=== PATIENT | female | born 1955 | race African-American/Black ===

== ENCOUNTER 2017-05-15 03:00 | Inpatient (IN) | payer OTHER ==
[~2017-05-15] VITALS: Ht 157.5 cm; Wt 98.9 kg
[2017-05-15] MEDS ORDERED: ONDANSETRON HCL/PF 4 MG/2 ML VIAL ONE ×3 (03:15→05:37)
[2017-05-15] MEDS ORDERED: MORPHINE SULFATE INJ 4 MG/ML DISP.SYRIN ONE (03:15)
--- NOTE | 2017-05-15 03:20 | NUR ---
PT BIB [facility] WITH A C/O SOB AND ABD PAIN, N/V SINCE SUNDAY. PT STATED THAT SHE HAS NOT BEEN ABLE TO EAT OR DRINK WITHOUT VOMITTING SINCE SUNDAY. PT IS AA&O X4, AMBULATORY, AND RESP EVEN AND UNLABORED. PT IS ON THE MONITOR AND CONTINUOUS PULSE OX. PT STATED THAT HER ABD PAIN IS 8/10.
[2017-05-15] MEDS ORDERED: ONDANSETRON HCL/PF 4 MG/2 ML VIAL IVP ONE (03:30)
[2017-05-15] MEDS ORDERED: MORPHINE SULFATE INJ 2 MG/ML DISP.SYRIN IV ONE (03:30)
[2017-05-15] MEDS ORDERED: IV NS 0.9% 1,000 ML BAG IV ONE (03:30)
[2017-05-15 03:46] LABS: BASOPHILS % (AUTO) 0.4 % (0.0-2.0); HEMATOCRIT 41 % (33-45); HEMOGLOBIN 13.6 g/dL (11.5-14.8); LYMPHOCYTES # (AUTO) 0.5 /CMM (0.8-4.8); LYMPHOCYTES % (AUTO) 7.2 % (20.0-44.0); MEAN CORPUSCULAR HGB CONC 34 g/dl (31.0-36.0); MEAN CORPUSCULAR VOLUME 88 fL (82-100); MONOCYTES # (AUTO) 0.1 /CMM (0.1-1.30); MONOCYTES % (AUTO) 2.3 % (2.0-12.0); NEUTROPHILS # (AUTO) 5.7 /CMM (1.8-8.9); NEUTROPHILS % (AUTO) 90.1 % (43.0-81.0); PLATELET COUNT (AUTO) 276 /CMM (150-450); RDW COEFFICIENT OF VARIATION 13.8 (11.5-15.0); RED BLOOD CELL COUNT(AUTO) 4.61 MIL/uL (4.0-5.2); WHITE BLOOD COUNT (AUTO) 6.4 K/uL (4.3-11.0)
--- NOTE | 2017-05-15 03:59 | NUR ---
PT RETURNED FROM CT AND WAS VOMITTING. DR. MENDOZA NOTIFIED. NEW ORDERS GIVEN.
[2017-05-15] MEDS ORDERED: ONDANSETRON HCL/PF 4 MG/2 ML VIAL IV ONE (04:00)
[2017-05-15 04:01] LABS: INR 1.05 (0.87-1.13)
[2017-05-15 04:03] LABS: ALBUMIN 3.9 g/dL (3.4-5.0); BILIRUBIN,DIRECT 0.2 mg/dL (0.0-0.2); BILIRUBIN,TOTAL 0.9 mg/dL (0.2-1.0); TOTAL PROTEIN, SERUM 7.9 g/dL (6.4-8.2)
[2017-05-15 04:05] LABS: TROPONIN I 0.32 ng/mL (0.00-0.056)
[2017-05-15 04:09] LABS: CREATININE 0.6 mg/dL (0.6-1.3)
[2017-05-15 04:10] LABS: POTASSIUM 2.5 mmol/L (3.5-5.1)
[2017-05-15] MEDS ORDERED: POTASSIUM CL. PREMIX PERIPHER. 50 ML ONE ×2 (04:13→06:50)
--- NOTE | 2017-05-15 04:16 | NUR ---
TEXTED DR. WILLINGHAM FOR ADMISSION.
[2017-05-15] MEDS ORDERED: ASPIRIN 325 MG TABLET ONE (04:17)
[2017-05-15] MEDS ORDERED: METRONIDAZOLE 500MG/ NS 100ML 100 ML IV ONE (04:17)
[2017-05-15] MEDS ORDERED: CIPROFLOXACIN IV RTU 200 ML IV ONE (04:17)
[2017-05-15] MEDS ORDERED: ASPIRIN 325 MG TABLET PO ONE (04:30)
[2017-05-15] MEDS: POTASSIUM CHLORIDE 10 MEQ/50 ML PREMIXED IVPB FOR PERIPHERAL LINE IV ONE ×2 (04:30→05:30)
[2017-05-15] MEDS ORDERED: CIPROFLOXACIN IV RTU 400 MG in PREMIX 1 EA IV SCH (04:30)
[2017-05-15] MEDS ORDERED: FLAGYL/NS RTU 500 MG/100 ML PIGGYBACK IV ONE (04:30)
--- NOTE | 2017-05-15 04:30 | NUR ---
PAGED DR. WILLINGHAM FOR ADMISSION.
--- NOTE | 2017-05-15 04:35 | NUR ---
PT AMBULATED TO THE BATHROOM WITH A STEADY GAIT.
--- NOTE | 2017-05-15 04:40 | NUR ---
URINE SAMPLE OBTAINED.
--- NOTE | 2017-05-15 04:41 | NUR ---
PANEL CALLED TO INQUIRE IF DR. WILLINGHAM HAD CALLED BACK; INFORMED NOT YET AND HE GOT REPAGED
--- NOTE | 2017-05-15 04:45 | NUR ---
ATTEMPTED TO START A 2ND IV IN PT'S LEFT HAND X2. UNSUCCESSFUL
[2017-05-15 04:47] LABS: APPEARANCE,URINE CLEAR (CLEAR); BILIRUBIN,URINE 1+ (NEGATIVE); BLOOD, URINE TRACE Ery/uL (NEGATIVE); COLOR,URINE YELLOW (YELLOW); KETONES,URINE 3+ (NEGATIVE); LEUKOCYTE ESTERASE ,URINE NEGATIVE (NEGATIVE); NITRITE, URINE NEGATIVE (NEGATIVE); PROTEIN,URINE 1+ mg/dl (NEGATIVE); UGLUCOSE NEGATIVE (NEGATIVE); UROBILINOGEN,URINE 0.2 EU/dL (0.2)
--- NOTE | 2017-05-15 04:51 | NUR ---
REPORT GIVEN TO NAN BARRAGAN
--- NOTE | 2017-05-15 04:52 | NUR ---
NAN MOSELEY ATTEMPTED IV START X2 IN PT'S HAND WITH THE VEIN FINDER. UNSUCCESSFUL.
[2017-05-15 04:53] LABS: BACTERIA,URINE Few /HPF (None Seen); MUCUS,URINE Few /LPF (None Seen); SQUAMOUS EPITHELIAL CELL,UR Few /HPF (None Seen)
--- NOTE | 2017-05-15 04:55 | NUR ---
ENDORSING CIPRO 400MG IVPB TO NAN BARRAGAN.
--- NOTE | 2017-05-15 04:55 | NUR ---
ENDORSED FLAGYL 500MG IVPB AND 30 MEQ POTASSIUM IV TO NAN BARRAGAN. WRITTEN ORDERS IN CHART.
--- NOTE | 2017-05-15 04:57 | NUR ---
PT ONLY WANTS IV IN HANDS. NO FURTHER IV STARTED.
--- NOTE | 2017-05-15 05:00 | NUR ---
NO CALL BACK YET FROM DR. WILLINGHAM. REPAGED THROUGH [facility].
--- NOTE | 2017-05-15 05:30 | NUR ---
CALLED [facility] FOR DR. WILLINGHAM
--- NOTE | 2017-05-15 05:30 | NUR ---
NAN MOSELEY IS AT THE BEDSIDE. POTASSIUM INFUSING.
[2017-05-15] MEDS ORDERED: hydrALAZINE HCL IV 20 MG VIAL ONE (05:34)
--- NOTE | 2017-05-15 05:36 | NUR ---
PT'S BP IS ELEVATED. DR. MENDOZA NOTIFIED. NEW ORDERES GIVEN.
--- NOTE | 2017-05-15 05:38 | NUR ---
PT IS VOMITTING. DR MENDOZA NOTIFIED. NEW ORDERS GIVEN AND CARRIED OUT.
--- NOTE | 2017-05-15 05:40 | NUR ---
LATE ENTRY, PATIENT RECIEVED 10MEQ IN 50 ML OF POTASSIUM AT 50 ML HOUR. FIRST BAG ADMIN IN ER, ER MD WANTS 40 MEQ IN TOTAL
--- NOTE | 2017-05-15 05:43 | NUR ---
PAGED DR. WILLINGHAM VIA [facility]. INFORMED "I CALLED BACK UP TOO; STILL WAITING"
[2017-05-15] MEDS ORDERED: hydrALAZINE HCL IV 20 MG VIAL IV PRN (06:00)
[2017-05-15] MEDS ORDERED: ONDANSETRON HCL/PF 4 MG/2 ML VIAL IV PRN (06:00)
[2017-05-15] MEDS ORDERED: MORPHINE SULFATE INJ 2 MG/ML DISP.SYRIN IV PRN (06:30)
[2017-05-15] MEDS ORDERED: NITROGLYCERIN 0.4 MG/TAB BOTTLE SL PRN (06:30)
--- NOTE | 2017-05-15 06:48 | NUR ---
BROUGHT PT TO [facility] TELE OVERFLOW.
--- NOTE | 2017-05-15 06:50 | NUR ---
BROUGHT THE CIPRO 400 MG IVPB, FLAGYL 500 MG IVPB, POTASSIUM 10 MeQ IVPB (X3) TO [facility] AND GAVE IT TO THE CHARGE NURSE.
[2017-05-15] MEDS ORDERED: POTASSIUM CL. PREMIX PERIPHER. 100 ML ONE (06:51)
[2017-05-15 06:58] VITALS: BP 187/78
--- NOTE | 2017-05-15 06:58 | NUR ---
RECIEVED PATIENT FROM ER VIA [facility] , ALERT/ORIENTED X3, AMBULATORY WITH 1 PERSON ASSISST, WITH ONGOING POTASSIUM IV FLUIDS, NO RESPIRATORY DISTRESS NOTED, RIGHT HAND 20 GAUGE, NO INFILTRATION/INFECTION NOTED, ON TELEMONITOR SINUS RHYTHM 85, ALL SAFETY MEASURES TAKEN, CALL LIGHT WITHIN REACH, ALL BELONGINGS WITHIN REACH, SIDE RAILS UP X 2, BED IN THE LOWEST POSITION, WILL ENDORSE TO ADMITTING NURSE FOR MOUSTAPHA
--- NOTE | 2017-05-15 07:30 | NUR ---
RN NOTES RECEIVED PATIENT IN BED ALERT, AWAKE, ORIENTED X4 WITH BREATHING NORMAL, EVEN AND UNLABORED. NO SOB NOTED. NO ACUTE DISTRESS NOTED. TELE MONITOR REVEALS SR, HR=88. IV R HAND IS PATENT AND INTACT, NO INFILTRATION NOTED. PULSES PRESENT. SAFETY MEASURE OBSERVED. CALL LIGHT WITH IN REACH. WILL CONT TO MONITOR.
[2017-05-15] MEDS: POTASSIUM CL. PREMIX PERIPHER. 50 ML IV SCH ×8 (07:56→23:20)
[2017-05-15 08:00] VITALS: BP 172/86
[2017-05-15] MEDS ORDERED: POTASSIUM CHLORIDE 10 MEQ/50 ML PREMIXED IVPB FOR PERIPHERAL LINE IV ONE (08:00)
[2017-05-15] MEDS: LEVOFLOXACIN 500 MG /D5W 100ML 500 MG in PREMIX 1 EA IV SCH (08:02)
[2017-05-15] MEDS: METRONIDAZOLE 500MG/ NS 100ML 500 MG in PREMIX 1 EA IV SCH ×3 (08:02→21:19)
[2017-05-15] MEDS ORDERED: CLONIDINE HCL 0.3 MG/24H PTWK 1 EA PATCH TD SCH (08:30)
[2017-05-15 08:56] LABS: MAGNESIUM 1.5 mg/dL (1.8-2.4); PHOSPHORUS 3.2 mg/dL (2.5-4.9)
[2017-05-15 09:07] LABS: THYROID STIMULATING HORMONE 0.56 uIU/mL (0.358-3.74)
[2017-05-15] MEDS ORDERED: MORPHINE SULFATE INJ 4 MG/ML DISP.SYRIN IV PRN (09:30)
[2017-05-15] MEDS: LOSARTAN POTASSIUM 25 MG TABLET PO SCH (09:31)
[2017-05-15] MEDS: CARVEDILOL 6.25 MG TABLET PO SCH ×2 (09:31→21:20)
[2017-05-15] MEDS: ASPIRIN 81 MG TAB.CHEW PO SCH (09:32)
[2017-05-15] MEDS: NITROGLYCERIN 30 GM TUBE TP SCH ×2 (09:33→21:20)
[2017-05-15] MEDS: ONDANSETRON HCL/PF 4 MG/2 ML VIAL IVP PRN (09:40)
[2017-05-15] MEDS: MORPHINE SULFATE INJ 4 MG/ML DISP.SYRIN IV PRN ×3 (10:10→19:43)
[2017-05-15 12:00] VITALS: BP 162/84
--- NOTE | 2017-05-15 13:00 | NUR ---
RN NOTES RELAYED CRITICAL TROPONIN RESULTS =1.[address] STUBBS WITH NNO.
[2017-05-15] MEDS: PANTOPRAZOLE 40 MG VIAL IV SCH (13:30)
[2017-05-15] MEDS: Magnesium 1GM/D5W 100ML PREMIX 100 ML IV SCH ×2 (13:43→15:09)
[2017-05-15] MEDS: hydrALAZINE HCL IV 20 MG VIAL IV PRN (13:46)
[2017-05-15 16:00] VITALS: BP 136/90
[2017-05-15] MEDS ORDERED: IV NS 0.9% 1,000 ML BAG IV PRN (16:30)
[2017-05-15] MEDS: IV NS 0.9% 1,000 ML IV PRN (16:45)
[2017-05-15 18:27] LABS: CALCIUM, SERUM 8.4 mg/dL (8.5-10.1); CREATININE 0.7 mg/dL (0.6-1.3)
--- NOTE | 2017-05-15 18:30 | NUR ---
RN NOTES RELAYED POTASSIUM RESULTS =2.6 TO CIARA ANGLIN WITH ORDER TO GIVE POTASSIUM 60MEQ IV. ORDER NOTED AND CARRIED OUT. WILL CONT TO MONITOR.
[2017-05-15 18:33] LABS: POTASSIUM 2.6 mmol/L (3.5-5.1)
[2017-05-15 18:50] LABS: TROPONIN I 1.371 ng/mL (0.00-0.056)
--- NOTE | 2017-05-15 19:03 | NUR ---
RN NOTES RELAYED TROPONIN RESULTS=1.371 TO CIARA ANGLIN WITH NNO.
--- NOTE | 2017-05-15 19:30 | NUR ---
RN NOTES RECEIVED PT AWAKE ON BED CALM AND COMFORTABLE. PT IS AOX4 ABLE TO MAKE KNOWN NEEDS. DENIES ANY CHEST PAIN. NO ACUTE RESP DISTRESS. AFEBRILE. WITH IV SITE ON RIGHT HAND G 20 RUNNING WITH NS @ 75 CC/HR AND STARTED KCL IV RUNNING WELL NO INFILTRATION SHOWS. COMPLAINING OF HEADACHE AT 7/10 SCALE. INFORMED REGARDING PLAN OF CARE AND AND EDUCATE REGARDING EGD FOR TOMORROW. KEPT PT CLEAN AND DRY. CALL LIGHT KEPT WITHIN EASY REACH INSTRUCTION PROVIDED. WILL CONTINUE TO MONITOR.
--- NOTE | 2017-05-15 19:31 | NUR ---
RN NOTES PATIENT ENDORSED TO NEXT SHIFT IN STABLE CONDITION FOR CONTINUITY OF CARE. NO SIGNIFICANT CHANGES NOTED. WILL CONT TO MONITOR.
[2017-05-15 20:00] VITALS: BP 125/50
[2017-05-15] MEDS: ATORVASTATIN 40 MG TABLET PO SCH (21:20)
[2017-05-16] VITALS (8 sets, daily range): BP systolic 115–183; BP diastolic 52–95
[2017-05-16] MEDS: POTASSIUM CL. PREMIX PERIPHER. 50 ML IV SCH ×9 (00:23→15:57)
--- NOTE | 2017-05-16 00:48 | NUR ---
RN NOTES PT CONTINUE TO COMPLAIN OF PAIN ON HER IV SITE DUE TO KCL IV THAT WAS GIVEN TO HER. REQUESTED TO CHANGE THE ROUTE BY MOUTH. PER LINNETTE DONG PT NEED TO HAVE KCL VIA IV LINE CAUSE THE PT REALLY NEEDS IT DUE TO HER CARDIAC PICTURE. PER MD TO PLACED A NEW LINE INSTEAD TO KEEP THE KCL VIA IV. PT MADE AWARE.
[2017-05-16] MEDS: METRONIDAZOLE 500MG/ NS 100ML 500 MG in PREMIX 1 EA IV SCH ×3 (04:37→21:33)
[2017-05-16] MEDS: LEVOFLOXACIN 500 MG /D5W 100ML 500 MG in PREMIX 1 EA IV SCH (06:32)
[2017-05-16] MEDS: MORPHINE SULFATE INJ 4 MG/ML DISP.SYRIN IV PRN ×2 (07:00→14:10)
[2017-05-16] MEDS ORDERED: ANESTHESIA TRAY IN PYXIS 1 EA TRAY MC ONE (07:10)
--- NOTE | 2017-05-16 07:15 | NUR ---
RN NOTES PT PICKED UP BY [facility] STAFF AT THIS TIME FOR EGD PROCEDURE. ALL CONSENT SIGNED BY PATIENT. PT REFUSED BLOOD TRANSFUSION PER PT. SHE IS TAOISM. PT IS IN STABLE AT THIS TIME. PAIN MEDICINE GIVEN ORDERED . VS STABLE. REMAINED SR HR ON 60'S. IV ATB TOLERATED WELL KCL IV GIVEN ORDERED. NO EPISODE OF VOMITING OR NAUSEA THIS MORNING. MORNING CARE PROVIDED. ALL NEEDS ATTENDED. KEPT PT CLEAN AND DRY. PT ASSISTED TO THE BATHROOM AT TIMES. WILL ENDORSED CONTINUITY OF CARE TO AM NURSE.
[2017-05-16 07:17] LABS: BASOPHILS % (AUTO) 0.7 % (0.0-2.0); HEMATOCRIT 35 % (33-45); HEMOGLOBIN 12.2 g/dL (11.5-14.8); LYMPHOCYTES # (AUTO) 1.5 /CMM (0.8-4.8); MEAN CORPUSCULAR HGB CONC 35 g/dl (31.0-36.0); MEAN CORPUSCULAR VOLUME 89 fL (82-100); MONOCYTES # (AUTO) 0.6 /CMM (0.1-1.30); MONOCYTES % (AUTO) 10.2 % (2.0-12.0); NEUTROPHILS # (AUTO) 4.1 /CMM (1.8-8.9); NEUTROPHILS % (AUTO) 65.1 % (43.0-81.0); PLATELET COUNT (AUTO) 252 /CMM (150-450); RDW COEFFICIENT OF VARIATION 14.5 (11.5-15.0); RED BLOOD CELL COUNT(AUTO) 3.97 MIL/uL (4.0-5.2); WHITE BLOOD COUNT (AUTO) 6.4 K/uL (4.3-11.0)
--- NOTE | 2017-05-16 07:30 | NUR ---
RN OPEN NOTES RECEIVED REPORT FROM BUSINESS BANKING SALES ASSISTANT RN. PATIENT IS OFF THE FLOOR FOR EGD
[2017-05-16 07:36] LABS: ALBUMIN 3.3 g/dL (3.4-5.0); BILIRUBIN,TOTAL 1.3 mg/dL (0.2-1.0); CALCIUM, SERUM 8.2 mg/dL (8.5-10.1); PHOSPHORUS 2.5 mg/dL (2.5-4.9); TOTAL PROTEIN, SERUM 6.5 g/dL (6.4-8.2)
[2017-05-16] MEDS ORDERED: SUCCINYLCHOLINE CHLORIDE 20 MG/ML VIAL ONE (07:41)
[2017-05-16 07:44] LABS: TROPONIN I 0.519 ng/mL (0.00-0.056)
--- NOTE | 2017-05-16 07:44 | NUR ---
LAB CALLED TO REPORT CRITICAL TROPONIN LEVEL OF 0.519 = TROPONIN IS TRENDING DOWN
[2017-05-16] MEDS: CARVEDILOL 6.25 MG TABLET PO SCH ×2 (08:05→21:05)
[2017-05-16] MEDS: ASPIRIN 81 MG TAB.CHEW PO SCH (08:05)
[2017-05-16] MEDS: LOSARTAN POTASSIUM 25 MG TABLET PO SCH (08:05)
[2017-05-16] MEDS: NITROGLYCERIN 30 GM TUBE TP SCH ×2 (08:06→21:05)
--- NOTE | 2017-05-16 08:23 | NUR ---
PATIENT ARRIVED BACK TO UNIT FROM EGD
[2017-05-16] MEDS: ONDANSETRON HCL/PF 4 MG/2 ML VIAL IVP PRN ×2 (08:27→22:03)
[2017-05-16] MEDS: hydrALAZINE HCL IV 20 MG VIAL IV PRN ×3 (08:34→22:03)
--- NOTE | 2017-05-16 08:38 | NUR ---
PATIENT CAME BACK TO UNIT, NAUSEA AND HIGH BLOOS PRESSURE. ZOFRAN AND HYDRALAZINE ADMINISTERED. WILL CONTINNUE TO MONITOR PATIENT. PATIENT REFUSED ALL 0900 MEDS DUE TO NAUSEA
[2017-05-16] MEDS ORDERED: METOCLOPRAMIDE HCL 10 MG/2 ML VIAL IV PRN (10:30)
[2017-05-16] MEDS ORDERED: METOCLOPRAMIDE HCL 10 MG/2 ML VIAL IV ONE (11:00)
[2017-05-16] MEDS: PANTOPRAZOLE 40 MG VIAL IV SCH (13:07)
--- NOTE | 2017-05-16 16:10 | NUR ---
HIGH BLOOD PRESSURE. 171/63 HYDRALAZINE IV ADMINISTERED. PATIENT UNABLE TO TOLERATE PO D/T N/V
--- NOTE | 2017-05-16 19:14 | NUR ---
RN CLOSING NOTES PATIENT IS IN BED. AWAKE AND ALERT. AOX3. BED IN LOW POSITION, LOCKED AND TWO SIDE RAILS ARE UP FOR SAFETY. CALL LIGHT WITHIN REACH. NO SIGNS AND SYMPTOMS OF DISTRESS. ALL NEEDS ANTICIPATED AND ATTENDED FOR. PATIENT KEPT CLEAN, DRY AND SAFE. NO NEW CONCERNS DURING MY SHIFT
[2017-05-16] MEDS: METOCLOPRAMIDE HCL 10 MG/2 ML VIAL IV SCH (20:00)
[2017-05-16] MEDS ORDERED: METOCLOPRAMIDE HCL 10 MG/10 ML UDC PO SCH (20:00)
[2017-05-16] MEDS: ATORVASTATIN 40 MG TABLET PO SCH (21:05)
[2017-05-17] VITALS: BP_SYST 130; BP_SYST 158; BP_DIAS 53; BP_DIAS 63
[2017-05-17] MEDS ORDERED: CLONIDINE HCL 0.3 MG/24H PTWK 1 EA PATCH TD SCH
[2017-05-17 00:04] VITALS: BP 105/60
[2017-05-17] MEDS: MORPHINE SULFATE INJ 4 MG/ML DISP.SYRIN IV PRN ×2 (00:58→14:32)
[2017-05-17] MEDS ORDERED: ACETAMINOPHEN 650 MG/SUPP.RECT RC PRN (01:30)
[2017-05-17] MEDS: IV NS 0.9% 1,000 ML IV PRN (03:32)
[2017-05-17 04:00] VITALS: BP 105/68
[2017-05-17] MEDS: METOCLOPRAMIDE HCL 10 MG/2 ML VIAL IV SCH ×2 (04:00→12:00)
[2017-05-17] MEDS: METRONIDAZOLE 500MG/ NS 100ML 500 MG in PREMIX 1 EA IV SCH ×3 (05:47→21:34)
[2017-05-17] MEDS: LEVOFLOXACIN 500 MG /D5W 100ML 500 MG in PREMIX 1 EA IV SCH (05:48)
[2017-05-17] MEDS: ONDANSETRON HCL/PF 4 MG/2 ML VIAL IVP PRN ×3 (05:48→19:03)
[2017-05-17 07:11] LABS: BASOPHILS % (AUTO) 0.6 % (0.0-2.0); EOSINOPHILS % (AUTO) 0.5 % (0.0-6.0); HEMATOCRIT 34 % (33-45); HEMOGLOBIN 11.8 g/dL (11.5-14.8); LYMPHOCYTES # (AUTO) 1.6 /CMM (0.8-4.8); LYMPHOCYTES % (AUTO) 24.6 % (20.0-44.0); MEAN CORPUSCULAR HGB CONC 34 g/dl (31.0-36.0); MEAN CORPUSCULAR VOLUME 88 fL (82-100); MONOCYTES # (AUTO) 0.8 /CMM (0.1-1.30); MONOCYTES % (AUTO) 11.7 % (2.0-12.0); NEUTROPHILS # (AUTO) 4.1 /CMM (1.8-8.9); NEUTROPHILS % (AUTO) 62.6 % (43.0-81.0); PLATELET COUNT (AUTO) 242 /CMM (150-450); WHITE BLOOD COUNT (AUTO) 6.5 K/uL (4.3-11.0)
[2017-05-17 07:25] LABS: CALCIUM, SERUM 8.3 mg/dL (8.5-10.1); CREATININE 0.7 mg/dL (0.6-1.3); MAGNESIUM 1.8 mg/dL (1.8-2.4); PHOSPHORUS 3.3 mg/dL (2.5-4.9)
--- NOTE | 2017-05-17 07:30 | NUR ---
AUDIT ASSOCIATE AM NOTES PATIENT IS IN BED. AWAKE AND ALERT. AOX3. ON RA, NOT IN ANY DISTRESS, TELEMETRY READS SR HR 64, DENIES CHEST PAIN OR DISCOMFORT, RT HAND IV ACCESS INFILTRATED, WILL REMOVED AND START A NEW ONE, LFA G 20 WITH NS AT 75 ML/HR, INFUSING WELL, SITE CLEAR. NPO FOR CTA HEART WITH 3D IMAGE, BED IN LOW POSITION, LOCKED AND TWO SIDE RAILS ARE UP FOR SAFETY. CALL LIGHT WITHIN REACH. SKIN INTACT, BED REST FOR NOW. CALL LIGHT WITH IN REACH. WILL CONT TO MONITOR.
[2017-05-17 07:49] LABS: POTASSIUM 2.8 mmol/L (3.5-5.1)
[2017-05-17 08:00] VITALS: BP 140/51
--- NOTE | 2017-05-17 08:45 | NUR ---
RN NOTES DR MORENA MO NOTIFIED OF K+ LEVEL 2.8. ORDERED TO GIVE KCL 40 MEQ ONCE.
[2017-05-17] MEDS: NITROGLYCERIN 30 GM TUBE TP SCH ×2 (09:00→21:34)
--- NOTE | 2017-05-17 09:30 | NUR ---
WIRELESS SALES REPRESENTATIVE NOTES DUE MEDS GIVEN
[2017-05-17] MEDS: ASPIRIN 81 MG TAB.CHEW PO SCH (09:34)
[2017-05-17] MEDS: LOSARTAN POTASSIUM 25 MG TABLET PO SCH (09:35)
[2017-05-17] MEDS: CARVEDILOL 6.25 MG TABLET PO SCH ×2 (09:38→21:34)
[2017-05-17] MEDS ORDERED: POTASSIUM CHLORIDE 20 MEQ TAB.PRT.SR PO ONE (10:30)
--- NOTE | 2017-05-17 11:45 | NUR ---
RN NOTES CTA HEART WITH 3D IMAGE CANCELLED. PER RN BEVERLY, PT IS NOT FEELING WELL. WILL RESCHEDULE TOMORROW AT 1200. NPO AFTER BREAKFAST.
--- NOTE | 2017-05-17 12:00 | NUR ---
COMPUTER APPLICATIONS INSTRUCTOR PT IN BED EXPLAINED PT REGARDING THE CTA PT STATED SHE DOES NOT FEEL GOOD HER STOMACH IS BOTHERING HER AND SHE DOES NOT WANT CTA DONE TODAY, EXPLAIN PT THE RISKS AND BENEFITS PT STILL REFUSED NOTIFIED DR. RATLIFF AND NURSING SUP REGARDING PT REFUSAL AND SHE WANTS THE PROCEDURE TO BE DONE TOMORROW.
[2017-05-17] MEDS: PANTOPRAZOLE 40 MG VIAL IV SCH (13:09)
--- NOTE | 2017-05-17 13:09 | NUR ---
MS RN NOTES STARTED FLAGYL IV.
[2017-05-17] MEDS: POTASSIUM CHLORIDE 20 MEQ TAB.PRT.SR PO SCH ×3 (13:10→15:28)
[2017-05-17] MEDS ORDERED: IOHEXOL-350 100 ML VIAL IV ONE (13:36)
[2017-05-17] MEDS ORDERED: CT SWABBABLE VALVE TRANS SET 1 EA INFUS.SET MC ONE (13:36)
[2017-05-17] MEDS ORDERED: IV NS 0.9% 250 ML IV ONE (13:36)
--- NOTE | 2017-05-17 14:00 | NUR ---
MS RN NOTES PATIENT MOVED TO 116-2
[2017-05-17] MEDS ORDERED: METOCLOPRAMIDE HCL 10 MG/10 ML UDC GT SCH (14:30)
--- NOTE | 2017-05-17 15:17 | NUR ---
MS RN NOTES [place] PLANNING AIDE FOR DR. CUNNINGHAM NOTIFIED THAT ERYTHROMYCIN IS NOT AVAILABLE PER PHARMACY. IF POSSIBLE FOR THER TO CALL THEM DIRECTLY.
[2017-05-17] MEDS: METOCLOPRAMIDE HCL 10 MG/10 ML UDC PO SCH ×2 (15:28→22:33)
[2017-05-17 16:00] VITALS: BP 135/63
--- NOTE | 2017-05-17 19:30 | NUR ---
MS/RN NOTES: RECEIVED PT. IN BED W/ HOB ELEVATED. W/ FRIEND AT BEDSIDE. A/O X 4. DENIES ANY C/O CHEST PAIN OR SOB AT THIS TIME. ON CLEAR LIQUIDS. HAS MARTHA G 18 SL PATENT AND INTACT W/ NO S/S OF INFECTION/INFILTRATION NOTED. HAS LFA G 20 PATENT AND INTACT W/ NS AT 75 ML/HR. CALL LIGHT W/ REACH. WILL CONTINUE TO MONITOR.
--- NOTE | 2017-05-17 19:51 | NUR ---
MS RN CLOSING NOTES PATIENT RESTING IN BED. AWAKE AND ALERT. AOX3. ON RA, NOT IN ANY DISTRESS, DENIES CHEST PAIN OR DISCOMFORT, RT UPPER ARM G 18 FLUSHES WELL SITE CLEAR. LEFT FA G 20 WITH NS AT 75 ML/HR INFUSING WELL, SITE CLEAR. ON CLEAR LIQUID NPO AFTER BREAKFAST TOMORROW FOR CTA HEART WITH 3D IMAGE, BED IN LOW POSITION, LOCKED AND TWO SIDE RAILS ARE UP FOR SAFETY. CALL LIGHT WITHIN REACH. SKIN INTACT, BED REST FOR NOW. CALL LIGHT WITH IN REACH. ALL NEEDS MET, NO OTHER SIGNIFICANT CHANGE IN CONDITION. WILL ENDORSE TO NEXT SHIFT FOR MOUSTAPHA.
[2017-05-17 20:00] VITALS: BP 130/53
[2017-05-17] MEDS ORDERED: ERYTHROMYCIN 500 MG in IV NS 0.9% 100 ML IV SCH (21:00)
[2017-05-17] MEDS: ATORVASTATIN 40 MG TABLET PO SCH (21:34)
[2017-05-18] VITALS: BP 105/44
[2017-05-18 04:00] VITALS: BP 113/41
[2017-05-18] MEDS: METRONIDAZOLE 500MG/ NS 100ML 500 MG in PREMIX 1 EA IV SCH ×3 (04:20→22:06)
[2017-05-18] MEDS: LEVOFLOXACIN 500 MG /D5W 100ML 500 MG in PREMIX 1 EA IV SCH (05:41)
[2017-05-18] MEDS: MORPHINE SULFATE INJ 4 MG/ML DISP.SYRIN IV PRN (05:45)
[2017-05-18] MEDS: METOCLOPRAMIDE HCL 10 MG/10 ML UDC PO SCH ×3 (05:57→22:24)
[2017-05-18 06:31] LABS: BASOPHILS % (AUTO) 0.3 % (0.0-2.0); EOSINOPHILS % (AUTO) 0.9 % (0.0-6.0); HEMATOCRIT 34 % (33-45); HEMOGLOBIN 11.9 g/dL (11.5-14.8); LYMPHOCYTES # (AUTO) 1.3 /CMM (0.8-4.8); LYMPHOCYTES % (AUTO) 23.1 % (20.0-44.0); MEAN CORPUSCULAR HGB CONC 35 g/dl (31.0-36.0); MEAN CORPUSCULAR VOLUME 89 fL (82-100); MONOCYTES # (AUTO) 0.6 /CMM (0.1-1.30); MONOCYTES % (AUTO) 10.5 % (2.0-12.0); NEUTROPHILS # (AUTO) 3.6 /CMM (1.8-8.9); NEUTROPHILS % (AUTO) 65.2 % (43.0-81.0); PLATELET COUNT (AUTO) 226 /CMM (150-450); RDW COEFFICIENT OF VARIATION 14.8 (11.5-15.0); RED BLOOD CELL COUNT(AUTO) 3.88 MIL/uL (4.0-5.2); WHITE BLOOD COUNT (AUTO) 5.5 K/uL (4.3-11.0)
[2017-05-18 06:35] LABS: ALBUMIN 3.1 g/dL (3.4-5.0); CALCIUM, SERUM 8.7 mg/dL (8.5-10.1); CREATININE 0.6 mg/dL (0.6-1.3); MAGNESIUM 2.4 mg/dL (1.8-2.4); PHOSPHORUS 3.3 mg/dL (2.5-4.9); TOTAL PROTEIN, SERUM 6.4 g/dL (6.4-8.2)
[2017-05-18 06:36] LABS: TROPONIN I 0.119 ng/mL (0.00-0.056)
--- NOTE | 2017-05-18 07:30 | NUR ---
DATA CAPTURE CLERK AM NOTES PATIENT IS IN BED. AWAKE AND ALERT. AOX3. ON RA, NOT IN ANY DISTRESS, TELEMETRY READS SR HR 60, DENIES CHEST PAIN OR DISCOMFORT, RT UPPER ARM G 18 IV ACCESS, FLUSHES WELL, RT HAND G 22 WITH NS AT 75 ML/HR INFUSING WELL, BOTH SITES CLEAR. NPO EXCEPT MEDS FOR CTA HEART WITH 3D IMAGE, BED IN LOW POSITION, LOCKED AND TWO SIDE RAILS ARE UP FOR SAFETY. CALL LIGHT WITHIN REACH. SKIN INTACT, BED REST FOR NOW. CALL LIGHT WITH IN REACH. WILL CONT TO MONITOR.
[2017-05-18 08:00] VITALS: BP 125/56
[2017-05-18] MEDS: NITROGLYCERIN 30 GM TUBE TP SCH ×2 (09:00→22:18)
[2017-05-18] MEDS: ASPIRIN 81 MG TAB.CHEW PO SCH (09:11)
[2017-05-18] MEDS: CARVEDILOL 6.25 MG TABLET PO SCH ×2 (09:11→22:18)
[2017-05-18] MEDS: LOSARTAN POTASSIUM 25 MG TABLET PO SCH (09:11)
--- NOTE | 2017-05-18 09:30 | NUR ---
MS RN NOTES ADMINISTERED DUE MEDS
[2017-05-18] MEDS: POTASSIUM CHLORIDE 20 MEQ TAB.PRT.SR PO SCH ×3 (10:18→12:32)
--- NOTE | 2017-05-18 11:03 | NUR ---
RN NOTES FOLLOWED UP WITH ANTHONY AT [facility] FOR SCHEDULED PROCEDURE, PER HIM, WE ARE JUST WAITING FOR BEVERLY [place].
[2017-05-18] MEDS ORDERED: IOHEXOL-350 100 ML VIAL IV ONE (11:14)
[2017-05-18] MEDS ORDERED: IV NS 0.9% 250 ML IV ONE (11:14)
--- NOTE | 2017-05-18 11:20 | NUR ---
MS RN NOTES PATIENT PICKED UP FOR SCHEDULED CTA OF HEART
[2017-05-18] MEDS: SUCRALFATE 1 G/10 ML UDC PO SCH ×2 (12:31→18:13)
[2017-05-18] MEDS: PANTOPRAZOLE 40 MG VIAL IV SCH (12:31)
--- NOTE | 2017-05-18 12:31 | NUR ---
MS RN NOTES PATIENT BACK. UNABLE TO PROCEED WITH PROCEDURE DUE TO POOR IV ACCESS. WILL NEED MIDLINE MOST PROBABLY PER BEVERLY RN STARTED FLAGYL IV.
--- NOTE | 2017-05-18 13:02 | NUR ---
MS RN NOTES SPOKE WITH DR. MORENA MO RE PATIENT WILL BE NEEDING A MIDLINE FOR CTA, PER HIM WILL DO IT EITHER TONIGHT OR TOMORROW. NURSING DIRECTOR OF THE BIOPHYSICS FACILITY AWARE, CHARGE NURSE AWARE AND BEVERLY RN AT [facility] AWARE. WILL RE SCHEDULE CTA OF HEART TOMORROW.
[2017-05-18 16:00] VITALS: BP 112/65
[2017-05-18] MEDS: IV NS 0.9% 1,000 ML IV PRN (18:13)
--- NOTE | 2017-05-18 19:17 | NUR ---
MS RN CLOSING NOTES PATIENT RESTING IN BED. AWAKE AND ALERT. AOX3. ON RA, NOT IN ANY DISTRESS, DENIES CHEST PAIN OR DISCOMFORT, RIGHT HAND G 22 WITH NS AT 75 ML/HR INFUSING WELL, SITE CLEAR. ON CLEAR LIQUID NPO AFTER BREAKFAST TOMORROW FOR CTA HEART WITH 3D IMAGE, BED IN LOW POSITION, LOCKED AND TWO SIDE RAILS ARE UP FOR SAFETY. CALL LIGHT WITHIN REACH. SKIN INTACT, BED REST FOR NOW. CALL LIGHT WITH IN REACH. ALL NEEDS MET, NO OTHER SIGNIFICANT CHANGE IN CONDITION. WILL ENDORSE TO NEXT SHIFT FOR MOUSTAPHA. DR MORENA MO FOR MIDLINE INSERTION AWARE.
--- NOTE | 2017-05-18 19:30 | NUR ---
RN/MS NOTES: RECEIVED PT. IN BED A/O X 4. DENIES ANY C/O CHEST PAIN OR SOB AT PRESENT. IVF ON RH G 22 PATENT AND INTACT W/ NO S/S OF INFECTION/INFILTRATION NOTED. W/ NS @ 75 ML /HR GOING. PT. IS CONTINENT OF B/B. AMBULATORY W/ STEADY GAIT. CALL LIGHT W/ REACH. WILL CONTINUE TO MONITOR.
[2017-05-18 20:00] VITALS: BP 137/75
[2017-05-18] MEDS: ATORVASTATIN 40 MG TABLET PO SCH ×2 (22:06→22:18)
[2017-05-19] MEDS: SUCRALFATE 1 G/10 ML UDC PO SCH ×4 (00:02→17:02)
[2017-05-19] MEDS ORDERED: ACETAMINOPHEN 325 MG TABLET PO PRN (02:30)
[2017-05-19 04:00] VITALS: BP 131/59
[2017-05-19] MEDS: METRONIDAZOLE 500MG/ NS 100ML 500 MG in PREMIX 1 EA IV SCH ×3 (04:03→21:59)
[2017-05-19] MEDS: LEVOFLOXACIN 500 MG /D5W 100ML 500 MG in PREMIX 1 EA IV SCH (05:53)
[2017-05-19] MEDS: METOCLOPRAMIDE HCL 10 MG/10 ML UDC PO SCH ×3 (05:59→21:59)
--- NOTE | 2017-05-19 07:26 | NUR ---
RN/MS NOTES: NO CHANGES NOTED DURING THIS SHIFT. REPORT GIVEN TO AM NURSE FOR MOUSTAPHA.
[2017-05-19 08:00] VITALS: BP 129/50
[2017-05-19] MEDS: ASPIRIN 81 MG TAB.CHEW PO SCH (08:27)
[2017-05-19] MEDS: CARVEDILOL 6.25 MG TABLET PO SCH ×2 (08:28→21:00)
[2017-05-19] MEDS: LOSARTAN POTASSIUM 25 MG TABLET PO SCH (08:28)
[2017-05-19] MEDS: ONDANSETRON HCL/PF 4 MG/2 ML VIAL IVP PRN ×2 (08:30→14:06)
[2017-05-19] MEDS: NITROGLYCERIN 30 GM TUBE TP SCH ×2 (08:30→21:59)
[2017-05-19 10:32] LABS: BASOPHILS % (AUTO) 0.4 % (0.0-2.0); EOSINOPHILS % (AUTO) 1.1 % (0.0-6.0); HEMATOCRIT 34 % (33-45); HEMOGLOBIN 11.6 g/dL (11.5-14.8); LYMPHOCYTES # (AUTO) 1.2 /CMM (0.8-4.8); LYMPHOCYTES % (AUTO) 26.4 % (20.0-44.0); MEAN CORPUSCULAR HGB CONC 34 g/dl (31.0-36.0); MEAN CORPUSCULAR VOLUME 89 fL (82-100); MONOCYTES # (AUTO) 0.4 /CMM (0.1-1.30); MONOCYTES % (AUTO) 8.9 % (2.0-12.0); NEUTROPHILS # (AUTO) 2.9 /CMM (1.8-8.9); NEUTROPHILS % (AUTO) 63.2 % (43.0-81.0); PLATELET COUNT (AUTO) 230 /CMM (150-450); RDW COEFFICIENT OF VARIATION 14.9 (11.5-15.0); RED BLOOD CELL COUNT(AUTO) 3.82 MIL/uL (4.0-5.2); WHITE BLOOD COUNT (AUTO) 4.7 K/uL (4.3-11.0)
[2017-05-19 10:42] LABS: CALCIUM, SERUM 8.5 mg/dL (8.5-10.1); CREATININE 0.5 mg/dL (0.6-1.3); POTASSIUM 2.9 mmol/L (3.5-5.1)
[2017-05-19 10:48] LABS: BILIRUBIN,TOTAL 0.7 mg/dL (0.2-1.0); MAGNESIUM 2.9 mg/dL (1.8-2.4)
[2017-05-19] MEDS ORDERED: IOHEXOL-350 100 ML VIAL IV ONE (11:55)
[2017-05-19] MEDS ORDERED: IV NS 0.9% 250 ML IV ONE (11:55)
[2017-05-19] MEDS: IV NS 0.9% 1,000 ML IV PRN ×2 (12:03→16:57)
[2017-05-19] MEDS: PANTOPRAZOLE 40 MG VIAL IV SCH (13:00)
[2017-05-19] MEDS: POTASSIUM CL. PREMIX PERIPHER. 50 ML IV SCH ×4 (14:07→18:09)
[2017-05-19] MEDS: MORPHINE SULFATE INJ 4 MG/ML DISP.SYRIN IV PRN (15:51)
[2017-05-19 16:00] VITALS: BP 135/72
--- NOTE | 2017-05-19 19:36 | NUR ---
MS RN NOTES RECEIVED PT ON BED A/0X4. IV ACCESS RIGHT ARM PICCLINE @75CC/HR RUNNING WELL. ON NASAL CANNULA 2L SATURATING WELL. HEAD OF BED ELEVATED. SIDE RAILS UP. CALL LIGHT WITHIN REACH. WILL CONTINUE TO MONITOR PT CLOSELY.
[2017-05-19 20:00] VITALS: BP 120/46
--- NOTE | 2017-05-19 21:56 | NUR ---
MS RN NOTES CARVEDILOL NOT GIVEN. BP 110/46, HEART RATE 60.
[2017-05-20] MEDS: SUCRALFATE 1 G/10 ML UDC PO SCH ×5 (00:45→23:15)
[2017-05-20 04:00] VITALS: BP 135/70
[2017-05-20] MEDS: METRONIDAZOLE 500MG/ NS 100ML 500 MG in PREMIX 1 EA IV SCH ×3 (04:22→21:14)
[2017-05-20] MEDS: METOCLOPRAMIDE HCL 10 MG/10 ML UDC PO SCH ×3 (05:45→23:15)
[2017-05-20] MEDS: LEVOFLOXACIN 500 MG /D5W 100ML 500 MG in PREMIX 1 EA IV SCH (05:46)
--- NOTE | 2017-05-20 06:19 | NUR ---
MS RN NOTES NO ACUTE CHANGES NOTED DURING THE SHIFT. NO VOMITING THROUGHOUT THE SHIFT. DUE MEDS GIVEN. WILL ENDORSE TO THE AM NURSE FOR MOUSTAPHA.
[2017-05-20 06:41] LABS: BASOPHILS % (AUTO) 0.6 % (0.0-2.0); EOSINOPHILS % (AUTO) 2.1 % (0.0-6.0); HEMATOCRIT 33 % (33-45); HEMOGLOBIN 11.5 g/dL (11.5-14.8); LYMPHOCYTES # (AUTO) 1.2 /CMM (0.8-4.8); LYMPHOCYTES % (AUTO) 24.3 % (20.0-44.0); MEAN CORPUSCULAR HGB CONC 35 g/dl (31.0-36.0); MEAN CORPUSCULAR VOLUME 88 fL (82-100); MONOCYTES # (AUTO) 0.5 /CMM (0.1-1.30); MONOCYTES % (AUTO) 10.4 % (2.0-12.0); NEUTROPHILS % (AUTO) 62.6 % (43.0-81.0); PLATELET COUNT (AUTO) 239 /CMM (150-450); RED BLOOD CELL COUNT(AUTO) 3.75 MIL/uL (4.0-5.2); WHITE BLOOD COUNT (AUTO) 4.9 K/uL (4.3-11.0)
[2017-05-20 06:56] LABS: BILIRUBIN,TOTAL 0.6 mg/dL (0.2-1.0); CALCIUM, SERUM 8.5 mg/dL (8.5-10.1); CREATININE 0.6 mg/dL (0.6-1.3); MAGNESIUM 1.5 mg/dL (1.8-2.4); PHOSPHORUS 3.4 mg/dL (2.5-4.9); POTASSIUM 2.9 mmol/L (3.5-5.1); TOTAL PROTEIN, SERUM 6.1 g/dL (6.4-8.2)
--- NOTE | 2017-05-20 07:18 | NUR ---
RN INITIAL NOTES: REC'D PT AWAKE ON BED, NOT IN ANY DISTRESS, A/O X 4, STILL W/ EPISODE OF SOME NAUSEA. ON NC AT 2LPM, NO SOB. HAS MARTHA MIDLINE, PL, PATENT & INTACT W/ NO S/SX OF INFECTION/INFILTRATION NOTED, W/ NS X 75 CC/HR INFUSING WELL . PROVIDED COMFORT & SAFETY MEASURES. BED KEPT LOW & IN LOCKED POS. CALL LIGHT PLACED W/IN REACH. WILL CONTINUE TO MONITOR & ATTEND PT NEEDS.
[2017-05-20 08:00] VITALS: BP 141/74
[2017-05-20] MEDS: ASPIRIN 81 MG TAB.CHEW PO SCH (08:46)
[2017-05-20] MEDS: CARVEDILOL 6.25 MG TABLET PO SCH ×2 (08:46→21:17)
[2017-05-20] MEDS: NITROGLYCERIN 30 GM TUBE TP SCH ×2 (08:47→21:14)
[2017-05-20] MEDS: LOSARTAN POTASSIUM 25 MG TABLET PO SCH (08:47)
[2017-05-20] MEDS ORDERED: POTASSIUM CHLORIDE 20 MEQ TAB.PRT.SR PO SCH (10:00)
[2017-05-20] MEDS ORDERED: POTASSIUM CL. PREMIX PERIPHER. 50 ML IV SCH (11:00)
--- NOTE | 2017-05-20 11:10 | NUR ---
RN NOTES: PER DR. STUBBS TO MAKE KCL DRIP REPLACEMENT TO TOTAL OF 120 MEQS.
[2017-05-20] MEDS: hydrALAZINE HCL 50 MG TABLET PO SCH ×3 (11:18→17:17)
[2017-05-20] MEDS: NIFEdipine XL (30MG) 30 MG TAB PO SCH (11:19)
[2017-05-20] MEDS: Magnesium 1GM/D5W 100ML PREMIX 100 ML IV SCH ×2 (11:19→12:22)
[2017-05-20] MEDS ORDERED: POTASSIUM CHLORIDE 10 MEQ/50 ML PREMIXED IVPB FOR PERIPHERAL LINE IV SCH (12:00)
[2017-05-20] MEDS: PANTOPRAZOLE 40 MG VIAL IV SCH (12:22)
[2017-05-20] MEDS: POTASSIUM CL. PREMIX PERIPHER. 50 ML IV SCH ×12 (12:32→23:18)
[2017-05-20 16:00] VITALS: BP 136/66
--- NOTE | 2017-05-20 18:56 | NUR ---
RN CLOSING NOTES: NO ACUTE CHANGES NOTED W/IN SHIFT. PT TOLERATED ROOM AIR, NO SOB. MARTHA MIDLINE, SL, KEPT PATENT & INTACT W/ NO S/SX OF INFECTION/INFILTRATION NOTED, W/ GOOD VENOUS RETURN. FULL LIQUID DIET TOLERATED WELL, NO N/V. K REPLACEMENT ONGOING (SCHEDULED INFUSION WAS LATE & DELAYED D/T PT C/O PAIN UPON ADMINISTRATION & WANTING THE RATE TO BE DECREASED). KEPT WELL RESTED. NEEDS ATTENDED. BED KEPT LOW & IN LOCKED POS. CALL LIGHT PLACED W/IN REACH. WILL ENDORSE TO PM RN FOR MOUSTAPHA.
[2017-05-20] MEDS: ONDANSETRON HCL/PF 4 MG/2 ML VIAL IVP PRN (19:29)
[2017-05-20 20:00] VITALS: BP 115/50
[2017-05-20 20:46] VITALS: BP 115/50
[2017-05-20] MEDS: ATORVASTATIN 40 MG TABLET PO SCH (21:17)
[2017-05-21] MEDS: POTASSIUM CL. PREMIX PERIPHER. 50 ML IV SCH (00:18)
[2017-05-21 04:00] VITALS: BP 114/49
[2017-05-21] MEDS: METRONIDAZOLE 500MG/ NS 100ML 500 MG in PREMIX 1 EA IV SCH ×2 (04:06→12:12)
[2017-05-21] MEDS: METOCLOPRAMIDE HCL 10 MG/10 ML UDC PO SCH ×2 (05:36→14:09)
[2017-05-21] MEDS: LEVOFLOXACIN 500 MG /D5W 100ML 500 MG in PREMIX 1 EA IV SCH (05:36)
[2017-05-21] MEDS: SUCRALFATE 1 G/10 ML UDC PO SCH ×3 (05:36→17:04)
[2017-05-21 06:38] LABS: CALCIUM, SERUM 7.9 mg/dL (8.5-10.1); CREATININE 0.5 mg/dL (0.6-1.3); POTASSIUM 3.6 mmol/L (3.5-5.1)
--- NOTE | 2017-05-21 07:50 | NUR ---
RN NOTES RECEIVED PATIENT IN BED, AWAKE, WATCHING T.V. ALERT AND ORIENTED X4. BREATHING EVEN UNLABORED WITH NO DISTRESS NOTED. DENIES AND PAIN AT THIS TIME. RIGHT UPPER ARM IV INTACT AND PATENT. BED IN LOW POSITION, LOCKED. PLACED CALL LIGHT WITHIN REACH. WILL CONT TO MONITOR CONTINUITY OF CARE.
[2017-05-21 08:00] VITALS: BP 112/61
[2017-05-21] MEDS: NITROGLYCERIN 30 GM TUBE TP SCH (08:44)
[2017-05-21] MEDS: NIFEdipine XL (30MG) 30 MG TAB PO SCH (08:46)
[2017-05-21] MEDS: ASPIRIN 81 MG TAB.CHEW PO SCH (08:46)
[2017-05-21] MEDS: LOSARTAN POTASSIUM 25 MG TABLET PO SCH (08:46)
[2017-05-21] MEDS: hydrALAZINE HCL 50 MG TABLET PO SCH ×3 (08:47→16:53)
[2017-05-21] MEDS: CARVEDILOL 6.25 MG TABLET PO SCH (08:47)
[2017-05-21 12:00] VITALS: BP 117/66
[2017-05-21] MEDS: PANTOPRAZOLE 40 MG VIAL IV SCH (12:12)
[2017-05-21 16:00] VITALS: BP 120/48
[2017-05-21] MEDS ORDERED: POLYETHYLENE GLYCOL 3350 17 GM POWD.PACK PO PRN (16:00)
[2017-05-21] MEDS ORDERED: ASPI-1169 PO (16:13)
[2017-05-21] MEDS ORDERED: ATOR40TA PO (16:13)
[2017-05-21] MEDS ORDERED: HYDR-4077 PO (16:13)
[2017-05-21] MEDS ORDERED: PANT40TA2 PO (16:13)
[2017-05-21] MEDS ORDERED: CLON0.3P TD (16:13)
[2017-05-21] MEDS ORDERED: SUCR1ORA6 PO (16:13)
[2017-05-21] MEDS ORDERED: CARV6.252 PO (16:13)
[2017-05-21] MEDS ORDERED: NIFE30TA89 PO (16:13)
[2017-05-21] MEDS ORDERED: LOSA25TA3 PO (16:13)
[2017-05-21 16:53] VITALS: BP 120/60
--- NOTE | 2017-05-21 17:00 | NUR ---
RN NOTE ORDER RECEIVED FOR PATIENT TO BE DISCHARGE TODAY. PATIENT MADE AWARE
--- NOTE | 2017-05-21 18:35 | NUR ---
RN NOTE PATIENT IS BEING DISCHARGED TO GO HOME IN STABLE CONDITION. COMPLIANT WITH MEDIATIONS, COOPERATIVE WITH TREATMENT PLANS. PATIENT DENIES ANY PAIN AT THIS TIME. EDUCATED PATIENT ABOUT AFTER CARE PLAN AND COPIES PROVIDED. ALL PERSONAL BELONGINGS TAKEN WITH PATIENT. REMOVED RIGHT UPPER ARM MIDLINE WITH NO S/SX OF BLEEDING. MIDLINE CATH INTACT. RESIDENT LEFT VIA WHEELCHAIR WITH HER BROTHER IN LAW NAME MANUEL.
== END 2017-05-21 18:35 | disposition home or self-care (01) | DRG 241 ==
LOC: ER 03:02 → TELE-TD 04:28 → TELE1 05:06 → MEDSG1 05-18 09:38
PROVIDERS: ADMIT Nurse Practitioner Acute Care; ATTEND Nurse Practitioner Acute Care
PROC: 0DB68ZX Excision of Stomach, Via Natural or Artificial Opening Endoscopic, Diagnostic (ICD-10-PCS; principal; 2017-05-16 07:30)
PROC: 0DB48ZX Excision of Esophagogastric Junction, Via Natural or Artificial Opening Endoscopic, Diagnostic (ICD-10-PCS; principal; 2017-05-16 07:30)
PROC: 05H633Z Insertion of Infusion Device into Left Subclavian Vein, Percutaneous Approach (ICD-10-PCS; 2017-05-19)
PROC: B547ZZA Ultrasonography of Left Subclavian Vein, Guidance (ICD-10-PCS; 2017-05-19)
DX: K29.01 Acute gastritis with bleeding (principal); I21.A1 Myocardial infarction type 2; K22.11 Ulcer of esophagus with bleeding; D68.59 Other primary thrombophilia; E83.42 Hypomagnesemia; A04.9 Bacterial intestinal infection, unspecified; E66.01 Morbid (severe) obesity due to excess calories; I10 Essential (primary) hypertension; E87.6 Hypokalemia; E78.5 Hyperlipidemia, unspecified; D25.9 Leiomyoma of uterus, unspecified; K44.9 Diaphragmatic hernia without obstruction or gangrene; Z98.84 Bariatric surgery status; K21.9 Gastro-esophageal reflux disease without esophagitis; K31.89 Other diseases of stomach and duodenum
CPT/HCPCS: 36415; 36569; 71045-TC; 74018; 75574; 80048-TC; 80053-TC; 80061-TC; 80076-TC; 81000-TC; 83690-TC; 83735-TC; 84100-TC; 84439-TC; 84443-TC; 84484-TC; 85025-TC; 85730-TC; 87081-TC; 87086-TC; 88305-TC; 88313-TC; 88342; 93307-TC; A4216; A4606; C9113; J0330; J0360; J0744; J1364; J1956; J2270; J2405; J2704; J2765; J3475; J3480; J3490; J7030; J7040; J7050; J8597; Q9967; Z7610